=== PATIENT | male | born 1955 | race African-American/Black ===

== ENCOUNTER → 2016-03-23 | Outpatient (CLI) | payer OTHER ==
[~2016-03-23] MED LIST: ASPIR 8181 MG PO; GLIPIZIDE5 MG PO; HYDROCHLOROTHIA25 M2 PO; IBUPROFEN 800800 M1 PO; LIPITOR 20 MG T20 M1 PO; LISINOPRIL10 MG PO; METFORMIN HCL500 MG PO; PIOGLITAZONE15 MG; TAGAMET PO
--- NOTE | ~2016-03-23 | SLE ---
[facility] [address] POLYSOMNOGRAPHY STUDY Name: JAMES MOREL Room #: [facility].#: [id number] Admission: 03/23/16 Attend Phys: David Greco MD Discharge: Date of : 57 Report #: [id number] THIS REPORT FOR: //name// CC: David Bennett MD HISTORY OF PRESENT ILLNESS: A 60-year-old, height 6 feet, weight 300 pounds, usually goes bed at 10:00-11:00, gets out of bed 6:00-6:30, does not feel refreshed, possible snoring, daytime somnolence. COMMENTS: Sinus arrhythmia noted and supraventricular tachycardia. BASELINE PORTION: Total recording time of 154 minutes. Central apnea 11, obstructive apnea 82, mixed apnea 31, hypopnea 28. Apnea/hypopnea index 76.3 events per sleep hour. Low oxygen saturation 93%. Respiratory effort related to arousal 2 events per sleep hour. CPAP TITRATION: Titrated between 5 and 14 cm water pressure. At 14 cm water pressure, the patient was seen for 96 minutes of which 41 minutes was in REM sleep. There were 11 central apneas, 4 hypopneas, apnea/hypopnea index of 9.4 events per sleep hour, low sat of 93%. The patient was seen in supine REM sleep. IMPRESSION: 1. Obstructive sleep apnea/hypopnea, G47.33. 2. Periodic limb movement with arousal index 0.5 events per sleep hour. 3. Significant snoring. 4. CPAP improves the patient's apnea/hypopnea index, snoring and desaturation. 5. Sinus tachycardia noted and premature ventricular contraction. SUGGESTIONS: 1. In addition to specific therapy, the patient should be cautioned regarding driving or operating dangerous machinery unless fully alert. The patient should be cautioned regarding the use of respiratory depressants. 2. Oral appliance or appropriate surgery may be considered with appropriate followup. 3. May consider Holter monitor. 4. Weight loss and TSH per Dr. Bennett. 5. An auto-titrating CPAP between 7 and 15 cm water pressure is initially recommended. During our study, a Respironics DreamWear medium-wide nasal with Deluxe chinstrap was used with heated humidity. 6. If signs and symptoms not improved with therapy, further evaluation is recommended. Please do not hesitate to contact me if I may be of further assistance. <ELECTRONICALLY SIGNED> By: David Greco MD 04/06/16 2316 12 45 David Greco MD /nt
== END ==
LOC: SLEEPLAB 03-09 04:36
DX: G47.33 Obstructive sleep apnea (adult) (pediatric) (principal)